=== PATIENT | female | born 2000 | race Caucasian/White ===

== ENCOUNTER 2019-01-09 04:34 | Emergency (ER) | payer BC ==
[2019-01-09] MEDS ORDERED: Sodium Chloride 0.9% 1000 ML 1,000 ML ONE (04:58)
[2019-01-09] MEDS ORDERED: Sodium Chloride 0.9% 1000 ML 1,000 ML IV STA (05:03)
[2019-01-09] MEDS ORDERED: Zofran 4 MG/2 ML VIAL IV ONE (05:03)
[2019-01-09] MEDS ORDERED: Hydromorphone 1 mg/ml Ampule IV ONE (05:03)
--- NOTE | 2019-01-09 05:03 | ERPHSYRPT ---
- History of Present Illness Time Seen by Provider: 01/09/19 04:55 Historian: patient, family Exam Limitations: no limitations Physician History: 18 y/o white female with h/o constipation presents with onset of sharp bilat lower abd pain that began at 1999 last pm. last normal bm was 3 days ago. pt has vomited a couple of times. no diarrhea, no vaginal or rectal bleeding. pt had a similar episode approx 2 months ago. pts lmp ended 3 weeks ago. Timing/Duration: constant, worse, other (last pm at 1999) Activities at Onset: none Quality: sharpness, stabbing Abdominal Pain Onset Location: RLQ, LLQ Pain Radiation: no radiation Severity of Pain-Max: moderate Severity of Pain-Current: moderate Modifying Factors: Improves With: vomiting Associated Symptoms: nausea, vomiting Previous symptoms: same symptoms as today Allergies/Adverse Reactions: No Known Drug Allergies Allergy (Verified 01/09/19 05:05) Home Medications: Sertraline HCl 50 mg [Zoloft 50 mg Tablet] 50 mg PO DAILY 01/09/19 [History] - Review of Systems Constitutional: No Symptoms Eyes: No Symptoms Ears, Nose, & Throat: No Symptoms Respiratory: No Symptoms Cardiac: No Symptoms Abdominal/Gastrointestinal: Abdominal Pain, Nausea, Vomiting, Constipation Genitourinary Symptoms: No Symptoms Musculoskeletal: No Symptoms Skin: No Symptoms Neurological: No Symptoms Psychological: No Symptoms Endocrine: No Symptoms Hematologic/Lymphatic: No Symptoms Immunological/Allergic: No Symptoms All Other Systems: Reviewed and Negative - Past Medical History Neurological History: No Pertinent History ENT History: No Pertinent History Cardiac History: No Pertinent History Respiratory History: No Pertinent History Endocrine Medical History: No Pertinent History Musculoskeletal History: No Pertinent History GI Medical History: No Pertinent History History: No Pertinent History Psycho-Social History: No Pertinent History Female Reproductive Disorders: No Pertinent History - Past Surgical History Neuro Surgical History: No Pertinent History Cardiac: No Pertinent History Respiratory: No Pertinent History Gastrointestinal: No Pertinent History Genitourinary: No Pertinent History Musculoskeletal: No Pertinent History Female Surgical History: No Pertinent History - Nursing Vital Signs Nursing Vital Signs: Initial Vital Signs Temperature 97.4 F 01/09/19 04:42 Pulse Rate 103 H 01/09/19 04:42 Respiratory Rate 18 01/09/19 04:42 Blood Pressure 134/77 01/09/19 04:42 O2 Sat by Pulse Oximetry 98 01/09/19 04:42 Pain Scale Pain Intensity 5 - Physical Exam General Appearance: mild distress, alert, anxiety Eye Exam: PERRL/EOMI, eyes nml inspection Ears, Nose, Throat Exam: normal ENT inspection, moist mucous membranes Neck Exam: normal inspection, non-tender, supple, full range of motion Respiratory Exam: normal breath sounds, lungs clear, airway intact, No chest tenderness, No respiratory distress Cardiovascular Exam: regular rate/rhythm, normal heart sounds, normal peripheral pulses Gastrointestinal/Abdomen Exam: soft, normal bowel sounds, No tenderness Pelvic Exam: not done Rectal Exam: not done Back Exam: normal inspection, normal range of motion, No CVA tenderness, No vertebral tenderness Extremity Exam: normal inspection, normal range of motion, pelvis stable Neurologic Exam: alert, oriented x 3, cooperative, 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 Skin Exam: normal color, warm, dry Lymphatic Exam: No adenopathy SpO2 Interpretation: normal O2 Delivery: Room Air - Course Nursing assessment & vital signs reviewed: Yes Ordered Tests: Active Orders 24 hr Category Date Time Status IV Insertion STAT Care 01/09/19 05:03 Active ABDOMEN AND PELVIS W/0 CONTRAS [CT] Stat Exams 01/09/19 05:04 Taken AMYLASE Stat Lab 01/09/19 04:50 Completed CBC W DIFF Stat Lab 01/09/19 04:50 Completed CMP Stat Lab 01/09/19 04:50 Completed CULTURE,URINE Stat Lab 01/09/19 04:50 Received HCG QUALITATIVE,SERUM Stat Lab 01/09/19 04:50 Completed LIPASE Stat Lab 01/09/19 04:50 Completed Lactic Acid Stat Lab 01/09/19 05:03 Completed UA W/RFX UR CULTURE Stat Lab 01/09/19 04:50 Completed Medication Summary Discontinued Medications Generic Name Dose Route Start Last Admin Trade Name Freq PRN Reason Stop Dose Admin Hydromorphone HCl 1 mg 01/09/19 05:03 01/09/19 05:11 Hydromorphone 1 Mg/Ml Ampule IV 01/09/19 05:04 1 mg STAT ONE Administration Hydromorphone HCl Confirm 01/09/19 05:10 Hydromorphone 1 Mg/Ml Ampule Administered 01/09/19 05:11 Dose 1 mg .ROUTE .STK-MED ONE Sodium Chloride Confirm 01/09/19 04:58 Sodium Chloride 0.9% 1000 Ml Administered 01/09/19 04:59 Dose 1,000 mls @ ud .ROUTE .STK-MED ONE Sodium Chloride 1,000 mls @ 999 mls/hr 01/09/19 05:03 01/09/19 05:09 Sodium Chloride 0.9% 1000 Ml IV 01/09/19 06:03 999 mls/hr .Q1H1M STA Administration Ondansetron HCl 4 mg 01/09/19 05:03 01/09/19 05:11 Zofran 4 Mg/2 Ml Vial IV 01/09/19 05:04 4 mg STAT ONE Administration Ondansetron HCl Confirm 01/09/19 05:10 Zofran 4 Mg/2 Ml Vial Administered 01/09/19 05:11 Dose 4 mg .ROUTE .STK-MED ONE Lab/Rad Data: Laboratory Result Diagrams 01/09/19 04:50 01/09/19 04:50 Laboratory Results 01/09/19 01/09/19 01/09/19 Range/Units 05:03 04:50 04:50 WBC (4.0-10.5) K/mm3 RBC (4.1-5.4) M/mm3 Hgb (12.0-16.0) gm/dl Hct (35-47) % MCV (78-100) fl MCH (26-32) pg MCHC (32-36) g/dl RDW (11.5-14.0) % Plt Count (150-450) K/mm3 MPV (6-9.5) fl Gran % (36.0-66.0) % Eos # (Auto) (0-0.5) Absolute Lymphs (auto) (1.0-4.6) Absolute Monos (auto) (0.0-1.3) Lymphocytes % (24.0-44.0) % Monocytes % (0.0-12.0) % Eosinophils % (0.00-5.0) % Basophils % (0.0-0.4) % Absolute Granulocytes (1.4-6.9) Basophils # (0-0.4) Sodium (137-145) mmol/L Potassium (3.5-5.1) mmol/L Chloride (98-107) mmol/L Carbon Dioxide (22-30) mmol/L Anion Gap (5-15) MEQ/L BUN (7-17) mg/dL Creatinine (0.52-1.04) mg/dL Estimated GFR ML/MIN Glucose (74-106) mg/dL Lactic Acid 1.1 (0.4-2.0) Calcium (8.4-10.2) mg/dL Total Bilirubin (0.2-1.3) mg/dL AST (14-36) U/L ALT (0-35) U/L Alkaline Phosphatase (38-126) U/L Serum Total Protein (6.3-8.2) g/dL Albumin (3.5-5.0) g/dL Amylase (30-110) U/L Lipase (23-300) U/L Serum , Qual NEGATIVE (Negative) Urine Color YELLOW (YELLOW) Urine Appearance SLIGHTLY CLOUDY (CLEAR) Urine pH 6.0 (5-6) Ur Specific [place] 1.019 (1.005-1.025) Urine Protein NEGATIVE (Negative) Urine Ketones TRACE (NEGATIVE) Urine Blood SMALL (0-5) Zachariah/ul Urine Nitrite POSITIVE (NEGATIVE) Urine Bilirubin NEGATIVE (NEGATIVE) Urine Urobilinogen NEGATIVE (0-1) mg/dL Ur Leukocyte Esterase NEGATIVE (NEGATIVE) Urine WBC (Auto) 6-10 (0-5) /HPF Urine RBC (Auto) NONE (0-2) /HPF U Epithel Cells (Auto) RARE (FEW) /HPF Urine Bacteria (Auto) NONE (NEGATIVE) /HPF Urine Mucus (Auto) SLIGHT (NEGATIVE) /HPF Urine Culture Reflexed YES (NO) Urine Glucose NEGATIVE (NEGATIVE) mg/dL 01/09/19 01/09/19 Range/Units 04:50 04:50 WBC 12.4 H (4.0-10.5) K/mm3 RBC 4.86 (4.1-5.4) M/mm3 Hgb 15.3 (12.0-16.0) gm/dl Hct 43.5 (35-47) % MCV 89.5 (78-100) fl MCH 31.5 (26-32) pg MCHC 35.2 (32-36) g/dl RDW 12.8 (11.5-14.0) % Plt Count 189 (150-450) K/mm3 MPV 10.6 H (6-9.5) fl Gran % 77.7 H (36.0-66.0) % Eos # (Auto) 0.12 (0-0.5) Absolute Lymphs (auto) 1.89 (1.0-4.6) Absolute Monos (auto) 0.75 (0.0-1.3) Lymphocytes % 15.2 L (24.0-44.0) % Monocytes % 6.0 (0.0-12.0) % Eosinophils % 1.0 (0.00-5.0) % Basophils % 0.1 (0.0-0.4) % Absolute Granulocytes 9.66 H (1.4-6.9) Basophils # 0.01 (0-0.4) Sodium 138 (137-145) mmol/L Potassium 3.7 (3.5-5.1) mmol/L Chloride 106 (98-107) mmol/L Carbon Dioxide 19 L (22-30) mmol/L Anion Gap 16.7 H (5-15) MEQ/L BUN 14 (7-17) mg/dL Creatinine 0.69 (0.52-1.04) mg/dL Estimated GFR > 60.0 ML/MIN Glucose 109 H (74-106) mg/dL Lactic Acid (0.4-2.0) Calcium 9.6 (8.4-10.2) mg/dL Total Bilirubin 0.80 (0.2-1.3) mg/dL AST 23 (14-36) U/L ALT 21 (0-35) U/L Alkaline Phosphatase 86 (38-126) U/L Serum Total Protein 7.9 (6.3-8.2) g/dL Albumin 4.4 (3.5-5.0) g/dL Amylase 85 (30-110) U/L Lipase 83 (23-300) U/L Serum , Qual (Negative) Urine Color (YELLOW) Urine Appearance (CLEAR) Urine pH (5-6) Ur Specific [place] (1.005-1.025) Urine Protein (Negative) Urine Ketones (NEGATIVE) Urine Blood (0-5) Zachariah/ul Urine Nitrite (NEGATIVE) Urine Bilirubin (NEGATIVE) Urine Urobilinogen (0-1) mg/dL Ur Leukocyte Esterase (NEGATIVE) Urine WBC (Auto) (0-5) /HPF Urine RBC (Auto) (0-2) /HPF U Epithel Cells (Auto) (FEW) /HPF Urine Bacteria (Auto) (NEGATIVE) /HPF Urine Mucus (Auto) (NEGATIVE) /HPF Urine Culture Reflexed (NO) Urine Glucose (NEGATIVE) mg/dL - Progress Progress Note: 01/09/19 06:47 ct abd/pelvis-no acute process. Counseled pt/family regarding: lab results, diagnosis, need for follow-up, rad results - Departure Departure Disposition: Home Clinical Impression: Constipation, UTI (urinary tract infection), Abdominal pain Condition: Stable Critical Care Time: No Referrals: DANYELLE AGUIRRE NP [Primary Care Provider] - Additional Instructions: drink plenty of fluids. follow up with primary doctor for further management Prescriptions: Ondansetron ODT 4 MG [Zofran Odt 4 mg] 4 mg PO Q6H PRN PRN #10 tab.rapdis PRN Reason: Vomiting Cephalexin Mh 500 mg [Keflex 500 mg] 500 mg PO TID #21 capsule
[2019-01-09] MEDS ORDERED: Hydromorphone 1 mg/ml Ampule ONE (05:10)
[2019-01-09] MEDS ORDERED: Zofran 4 MG/2 ML VIAL ONE (05:10)
[2019-01-09 05:16] LABS: BASOPHIL % 0.1 % (0.0-0.4); Basophil (Absolute #) 0.01 (0-0.4); Eosinophil (Absolute #) 0.12 (0-0.5); Granulocyte Absolute (ANC) 9.66 (1.4-6.9); Granulocytes % 77.7 % (36.0-66.0); Hematocrit 43.5 % (35-47); Hemoglobin 15.3 gm/dl (12.0-16.0); Lymphocyte (Absolute #) 1.89 (1.0-4.6); Lymphocytes % 15.2 % (24.0-44.0); Mean Cell Volume 89.5 fl (78-100); Mean Corpuscular Hemoglobin 31.5 pg (26-32); Mean Corpuscular Hgb Concent. 35.2 g/dl (32-36); Mean Platelet Volume 10.6 fl (6-9.5); Monocyte (Absolute #) 0.75 (0.0-1.3); Platelet Count 189 K/mm3 (150-450); Red Blood Count 4.86 M/mm3 (4.1-5.4); Red Cell Distribution Width 12.8 % (11.5-14.0); White Blood Count 12.4 K/mm3 (4.0-10.5)
[2019-01-09 05:31] LABS: ALBUMIN 4.4 g/dL (3.5-5.0); ALKALINE PHOSPHATASE 86 U/L (38-126); AMYLASE 85 U/L (30-110); ANION GAP 16.7 MEQ/L (5-15); BLOOD UREA NITROGEN 14 mg/dL (7-17); CHLORIDE 106 mmol/L (98-107); Calcium 9.6 mg/dL (8.4-10.2); Carbon Dioxide 19 mmol/L (22-30); Creatinine 1 0.69 mg/dL (0.52-1.04); Glucose 109 mg/dL (74-106); Potassium 3.7 mmol/L (3.5-5.1); SGOT/AST 23 U/L (14-36); SGPT/ALT 21 U/L (0-35); SODIUM 138 mmol/L (137-145); Total Protein 7.9 g/dL (6.3-8.2)
[2019-01-09 05:33] LABS: Appearance SLIGHTLY CLOUDY (CLEAR); Bilirubin NEGATIVE (NEGATIVE); Blood SMALL Ery/ul (0-5); Epithelial Cells RARE /HPF (FEW); Glucose NEGATIVE (NEGATIVE); Ketones TRACE (NEGATIVE); Leukocyte Esterase NEGATIVE (NEGATIVE); Mucus SLIGHT /HPF (NEGATIVE); Nitrite POSITIVE (NEGATIVE); Protein,Urine Dip NEGATIVE (Negative); Specific Gravity 1.019 (1.005-1.025); Urobilinogen NEGATIVE mg/dL (0-1)
[2019-01-09] MEDS ORDERED: Pepcid 20 MG PO ONE (06:54)
[2019-01-09] MEDS ORDERED: KEFLEX 500 MG PO ONE (06:54)
[2019-01-09] MEDS ORDERED: KEFLEX 500 MG ONE (06:57)
[2019-01-09] MEDS ORDERED: Pepcid 20 MG ONE (06:57)
[2019-01-09 07:12] VITALS: BP 119/54; PULSE 81; O2SAT 98
--- NOTE | 2019-01-09 08:52 | XRAY ---
Indication: Abdomen pain. Emesis. Multiple contiguous axial images obtained through the abdomen and pelvis without contrast as ordered. Comparison: None. Lung bases are clear. Heart is not enlarged. Noncontrasted stomach and bowel loops appear nonobstructed. Normal appendix. No free fluid/air. Spleen is enlarged measuring 12.8 cm in greatest axial dimension. Remaining liver, gallbladder, pancreas, spleen, adrenal glands, kidneys, ureters, bladder, uterus, and aorta appear unremarkable for noncontrast exam. Osseous structures intact. No ventral or inguinal hernias. Impression: 1. Splenomegaly. 2. Remaining CT abdomen/pelvis without contrast exam is negative. Comment: Preliminary interpretation was made by [facility]. No critical discrepancy. CTDI 17.10
== END 2019-01-09 07:22 | disposition home or self-care (01) ==
LOC: ED 04:34
DX: K59.00 Constipation, unspecified (principal); N39.0 Urinary tract infection, site not specified; R10.31 Right lower quadrant pain; R10.32 Left lower quadrant pain; R11.2 Nausea with vomiting, unspecified; Z79.899 Other long term (current) drug therapy
CPT/HCPCS: 36000; 36415; 74176; 80053; 81001; 81025; 82150; 83605; 83690; 85025; 87077; 87086; 87186; 96360; 96374; 96375; 99284; J1170; J2405; A9270-GY

== ENCOUNTER 2019-03-21 03:44 | Emergency (ER) | payer BC ==
[2019-03-21] MEDS ORDERED: Compazine 10 MG/2 ML IV ONE (04:12)
[2019-03-21] MEDS ORDERED: Sodium Chloride 0.9% 1000 ML 1,000 ML IV STA (04:12)
--- NOTE | 2019-03-21 04:16 | ERPHSYRPT ---
- History of Present Illness Time Seen by Provider: 03/21/19 04:14 Historian: patient Exam Limitations: no limitations Patient Subjective Stated Complaint: pt states she began having lower abd cramping at approx 1999 and has been vomiting since. states she has waves of nausea and vomits after every time she drinks. Triage Nursing Assessment: pt alert and oriented, answers questions approp. pt ambulatory with steady gait noted. respirations nonlabored with lungs cta. abd soft and nontender with hypo bowel sounds. Physician History: pt states she began having lower abdominal cramping at approximately 2000 and has been vomiting since. states she has waves of nausea and vomits after every time she drinks. Timing/Duration: today Quality: cramping Abdominal Pain Onset Location: periumbilical Pain Radiation: no radiation Severity of Pain-Max: moderate Severity of Pain-Current: mild Modifying Factors: Improves With: nothing Associated Symptoms: vomiting Previous symptoms: no prior history Allergies/Adverse Reactions: No Known Drug Allergies Allergy (Verified 01/09/19 05:05) Home Medications: Sertraline HCl 50 mg [Zoloft 50 mg Tablet] 50 mg PO DAILY 01/09/19 [History] Hx Tetanus, Diphtheria Vaccination/Date Given: Yes Hx Influenza Vaccination/Date Given: No Hx Pneumococcal Vaccination/Date Given: No Immunizations Up to Date: Yes - Review of Systems Constitutional: No Fever, No Chills Eyes: No Symptoms Ears, Nose, & Throat: No Symptoms Respiratory: No Cough, No Dyspnea Cardiac: No Chest Pain, No Edema, No Syncope Abdominal/Gastrointestinal: Abdominal Pain, Vomiting, No Nausea, No Diarrhea Genitourinary Symptoms: No Dysuria Musculoskeletal: No Back Pain, No Neck Pain Skin: No Rash Neurological: No Dizziness, No Focal Weakness, No Sensory Changes Psychological: No Symptoms Endocrine: No Symptoms All Other Systems: Reviewed and Negative - Past Medical History Neurological History: No Pertinent History ENT History: No Pertinent History Cardiac History: No Pertinent History Respiratory History: No Pertinent History Endocrine Medical History: No Pertinent History Musculoskeletal History: No Pertinent History GI Medical History: No Pertinent History History: No Pertinent History Psycho-Social History: No Pertinent History Female Reproductive Disorders: No Pertinent History Other Medical History: hx of constipation and abd pain - Past Surgical History Past Surgical History: No Neuro Surgical History: No Pertinent History Cardiac: No Pertinent History Respiratory: No Pertinent History Gastrointestinal: No Pertinent History Genitourinary: No Pertinent History Musculoskeletal: No Pertinent History Female Surgical History: No Pertinent History Other Surgical History: wisdom teeth - Social History Smoking Status: Current every day smoker How long have you smoked: 1.5yr Exposure to second hand smoke: Yes Drug Use: marijuana Patient Lives Alone: No - Female History Hx Last Menstrual Period: current Hx Now: No - Nursing Vital Signs Nursing Vital Signs: Initial Vital Signs Temperature 97.6 F 03/21/19 03:48 Pulse Rate 63 03/21/19 03:48 Respiratory Rate 18 03/21/19 03:48 Blood Pressure 134/69 03/21/19 03:48 O2 Sat by Pulse Oximetry 100 03/21/19 03:48 Pain Scale Pain Intensity 4 - Physical Exam General Appearance: no apparent distress, alert Eye Exam: PERRL/EOMI, eyes nml inspection Ears, Nose, Throat Exam: normal ENT inspection, pharynx normal, moist mucous membranes Neck Exam: normal inspection, non-tender, supple, full range of motion Respiratory Exam: normal breath sounds, lungs clear, No respiratory distress Cardiovascular Exam: regular rate/rhythm, normal heart sounds Gastrointestinal/Abdomen Exam: soft, No tenderness, No mass Back Exam: normal inspection, normal range of motion, No CVA tenderness, No vertebral tenderness Extremity Exam: normal inspection, normal range of motion, pelvis stable Neurologic Exam: alert, oriented x 3, cooperative, normal mood/affect, nml cerebellar function, sensation nml, No motor deficits Skin Exam: normal color, warm, dry SpO2: 100 - Course Nursing assessment & vital signs reviewed: Yes Ordered Tests: Active Orders 24 hr Category Date Time Status AMYLASE Stat Lab 03/21/19 04:25 Completed CBC W DIFF Stat Lab 03/21/19 04:25 Completed CMP Stat Lab 03/21/19 04:25 Completed HCG QUALITATIVE,SERUM Stat Lab 03/21/19 04:25 Completed Lactic Acid Stat Lab 03/21/19 04:12 Completed UA W/RFX UR CULTURE Stat Lab 03/21/19 04:12 Uncollected Medication Summary Discontinued Medications Generic Name Dose Route Start Last Admin Trade Name Freq PRN Reason Stop Dose Admin Sodium Chloride 1,000 mls @ 999 mls/hr 03/21/19 04:12 03/21/19 05:39 Sodium Chloride 0.9% 1000 Ml IV 03/21/19 05:12 Infused .Q1H1M STA Infusion Sodium Chloride Confirm 03/21/19 04:21 Sodium Chloride 0.9% 1000 Ml Administered 03/21/19 04:22 Dose 1,000 mls @ ud .ROUTE .STK-MED ONE Prochlorperazine Edisylate 10 mg 03/21/19 04:12 03/21/19 04:28 Compazine 10 Mg/2 Ml IV 03/21/19 04:13 10 mg STAT ONE Administration Prochlorperazine Edisylate Confirm 03/21/19 04:21 Compazine 10 Mg/2 Ml Administered 03/21/19 04:22 Dose 10 mg .ROUTE .STIdeabove-MED ONE Lab/Rad Data: Laboratory Result Diagrams 03/21/19 04:25 03/21/19 04:25 Laboratory Results 03/21/19 03/21/19 03/21/19 Range/Units 04:53 04:25 04:25 WBC (4.0-10.5) K/mm3 RBC (4.1-5.4) M/mm3 Hgb (12.0-16.0) gm/dl Hct (35-47) % MCV (78-100) fl MCH (26-32) pg MCHC (32-36) g/dl RDW (11.5-14.0) % Plt Count (150-450) K/mm3 MPV (6-9.5) fl Gran % (36.0-66.0) % Eos # (Auto) (0-0.5) Absolute Lymphs (auto) (1.0-4.6) Absolute Monos (auto) (0.0-1.3) Lymphocytes % (24.0-44.0) % Monocytes % (0.0-12.0) % Eosinophils % (0.00-5.0) % Basophils % (0.0-0.4) % Absolute Granulocytes (1.4-6.9) Basophils # (0-0.4) Sodium 142 (137-145) mmol/L Potassium 3.5 (3.5-5.1) mmol/L Chloride 107 (98-107) mmol/L Carbon Dioxide 22 (22-30) mmol/L Anion Gap 16.6 H (5-15) MEQ/L BUN 13 (7-17) mg/dL Creatinine 0.66 (0.52-1.04) mg/dL Estimated GFR > 60.0 ML/MIN Glucose 130 H (74-106) mg/dL Hemoglobin A1c 4.76 (4.5-6.0) % Lactic Acid (0.4-2.0) Calcium 10.1 (8.4-10.2) mg/dL Total Bilirubin 0.60 (0.2-1.3) mg/dL AST 23 (14-36) U/L ALT 17 (0-35) U/L Alkaline Phosphatase 79 (38-126) U/L Serum Total Protein 8.7 H (6.3-8.2) g/dL Albumin 5.0 (3.5-5.0) g/dL Amylase 89 (30-110) U/L Serum , Qual NEGATIVE (Negative) 03/21/19 03/21/19 Range/Units 04:25 04:12 WBC 11.3 H (4.0-10.5) K/mm3 RBC 4.89 (4.1-5.4) M/mm3 Hgb 15.1 (12.0-16.0) gm/dl Hct 44.7 (35-47) % MCV 91.4 (78-100) fl MCH 30.9 (26-32) pg MCHC 33.8 (32-36) g/dl RDW 13.2 (11.5-14.0) % Plt Count 189 (150-450) K/mm3 MPV 10.1 H (6-9.5) fl Gran % 83.6 H (36.0-66.0) % Eos # (Auto) 0.02 (0-0.5) Absolute Lymphs (auto) 1.30 (1.0-4.6) Absolute Monos (auto) 0.53 (0.0-1.3) Lymphocytes % 11.5 L (24.0-44.0) % Monocytes % 4.7 (0.0-12.0) % Eosinophils % 0.2 (0.00-5.0) % Basophils % 0.0 (0.0-0.4) % Absolute Granulocytes 9.43 H (1.4-6.9) Basophils # 0 (0-0.4) Sodium (137-145) mmol/L Potassium (3.5-5.1) mmol/L Chloride (98-107) mmol/L Carbon Dioxide (22-30) mmol/L Anion Gap (5-15) MEQ/L BUN (7-17) mg/dL Creatinine (0.52-1.04) mg/dL Estimated GFR ML/MIN Glucose (74-106) mg/dL Hemoglobin A1c (4.5-6.0) % Lactic Acid 1.4 (0.4-2.0) Calcium (8.4-10.2) mg/dL Total Bilirubin (0.2-1.3) mg/dL AST (14-36) U/L ALT (0-35) U/L Alkaline Phosphatase (38-126) U/L Serum Total Protein (6.3-8.2) g/dL Albumin (3.5-5.0) g/dL Amylase (30-110) U/L Serum , Qual (Negative) unable to provide urine sample for UA - Progress Progress: improved Counseled pt/family regarding: drug and/or alcohol abuse, lab results, diagnosis , need for follow-up, smoking cessation - Departure Departure Disposition: Home Clinical Impression: Abdominal pain Qualifiers: Abdominal location: periumbilical Qualified Code(s): R10.33 - Periumbilical pain UTI (urinary tract infection) Qualifiers: Urinary tract infection type: site unspecified Hematuria presence: without hematuria Qualified Code(s): N39.0 - Urinary tract infection, site not specified Condition: Stable Critical Care Time: No Referrals: DANYELLE AGUIRRE NP [Primary Care Provider] - Instructions: Acute Abdomen (Belly Pain), Adult (DC) Additional Instructions: ABDOMINAL PAIN 1. There are several different causes for abdominal pain, some of which may not be able to be identified on initial examination. 2. The important thing to remember is that bodily functions can change in a short period of time. If you notice any of the following symptoms, return to the emergency department or consult your doctor immediately: A. Worsening pain or no improvement in the next 12 hours. B. Increasing, severe abdominal pain C. Blood in stool D. Black stools E. Persistent vomiting F. Fever or chills or other symptoms Discharge/Care Plan ADRIANA SHIELDS was seen on 03/21/19 in the Emergency Room. The patient was counseled regarding Diagnosis,Lab results, Imaging studies, need for follow up and when to return to the Emergency Room. Prescriptions given: Discharge Note I have spoken with the patient and/or caregivers. I have explained the patient' s condition, diagnosis and treatment plan based on the information available to me at this time. I have answered the patient's and/or caregiver's questions and addressed any concerns. The patient and/or caregivers have as good understanding of the patient's diagnosis, condition and treatment plan as can be expected at this point. The vital signs have been stable. The patient's condition is stable and appropriate for discharge from the emergency department. The patient will pursue further outpatient evaluation with the primary care physician or other designated or consulting physician as outlined in the discharge instructions. The patient and/or caregivers are agreeable to this plan of care and follow-up instructions have been explained in detail. The patient and/or caregivers have received these instruction. The patient/and or caregivers are aware that any significant change in condition or worsening of symptoms should prompt an immediate return to this or the closest emergency department or call 911. Prescriptions: Smz/Tmp Ds Tablet [Bactrim Ds Tablet] 1 udtab PO BID #20 tablet
[2019-03-21] MEDS ORDERED: Sodium Chloride 0.9% 1000 ML 1,000 ML ONE (04:21)
[2019-03-21] MEDS ORDERED: Compazine 10 MG/2 ML ONE (04:21)
[2019-03-21 04:26] LABS: Basophil (Absolute #) 0 (0-0.4); Eosinophil % 0.2 % (0.00-5.0); Eosinophil (Absolute #) 0.02 (0-0.5); Granulocyte Absolute (ANC) 9.43 (1.4-6.9); Granulocytes % 83.6 % (36.0-66.0); Hematocrit 44.7 % (35-47); Hemoglobin 15.1 gm/dl (12.0-16.0); Lymphocytes % 11.5 % (24.0-44.0); Mean Cell Volume 91.4 fl (78-100); Mean Corpuscular Hemoglobin 30.9 pg (26-32); Mean Corpuscular Hgb Concent. 33.8 g/dl (32-36); Mean Platelet Volume 10.1 fl (6-9.5); Monocyte (Absolute #) 0.53 (0.0-1.3); Monocytes % 4.7 % (0.0-12.0); Platelet Count 189 K/mm3 (150-450); Red Blood Count 4.89 M/mm3 (4.1-5.4); Red Cell Distribution Width 13.2 % (11.5-14.0); White Blood Count 11.3 K/mm3 (4.0-10.5)
[2019-03-21 04:35] LABS: ALKALINE PHOSPHATASE 79 U/L (38-126); AMYLASE 89 U/L (30-110); ANION GAP 16.6 MEQ/L (5-15); BLOOD UREA NITROGEN 13 mg/dL (7-17); CHLORIDE 107 mmol/L (98-107); Calcium 10.1 mg/dL (8.4-10.2); Carbon Dioxide 22 mmol/L (22-30); Creatinine 1 0.66 mg/dL (0.52-1.04); Glucose 130 mg/dL (74-106); Potassium 3.5 mmol/L (3.5-5.1); SGOT/AST 23 U/L (14-36); SGPT/ALT 17 U/L (0-35); SODIUM 142 mmol/L (137-145); Total Protein 8.7 g/dL (6.3-8.2)
[2019-03-21 05:49] VITALS: O2SAT 100
[2019-03-21 06:04] VITALS: BP 116/54; PULSE 67
== END 2019-03-21 06:01 | disposition home or self-care (01) ==
LOC: ED 03:44
DX: R10.33 Periumbilical pain (principal); N39.0 Urinary tract infection, site not specified
CPT/HCPCS: 36415; 80053; 81025; 82150; 83036; 83605; 85025; 96360; 96374; 99284

== ENCOUNTER 2019-06-05 22:15 | Emergency (ER) | payer BC ==
--- NOTE | 2019-06-05 22:35 | ERPHSYRPT ---
- History of Present Illness Time Seen by Provider: 06/05/19 22:30 Historian: patient Exam Limitations: no limitations Physician History: 18 y/o white female presents with first diarrhea, then vomiting thenrecurrent abd pain. pts sx began this afternoon. pt has been evaluated for abd pain 3 times in last 4 months through this ED. each time dx has been uti. normal ct scan abd/pelvis 01/22. pt has h/o chronic constipation. Timing/Duration: today Activities at Onset: none Quality: cramping Abdominal Pain Onset Location: generalized abdomen Pain Radiation: no radiation Severity of Pain-Max: mild Severity of Pain-Current: mild Modifying Factors: Improves With: vomiting Associated Symptoms: diarrhea, nausea, vomiting, No chest pain, No diaphoresis, No fever/chills, No shortness of breath Previous symptoms: same symptoms as today Allergies/Adverse Reactions: No Known Drug Allergies Allergy (Verified 01/09/19 05:05) Hx Tetanus, Diphtheria Vaccination/Date Given: Yes Hx Influenza Vaccination/Date Given: No Hx Pneumococcal Vaccination/Date Given: No - Review of Systems Constitutional: No Symptoms Eyes: No Symptoms Ears, Nose, & Throat: No Symptoms Respiratory: No Symptoms Cardiac: No Symptoms Abdominal/Gastrointestinal: Abdominal Pain, Nausea, Vomiting, Diarrhea, Appetite Changes Genitourinary Symptoms: No Symptoms Musculoskeletal: No Symptoms Skin: No Symptoms Neurological: No Symptoms Psychological: No Symptoms Endocrine: No Symptoms - Past Medical History Neurological History: No Pertinent History ENT History: No Pertinent History Cardiac History: No Pertinent History Respiratory History: No Pertinent History Endocrine Medical History: No Pertinent History Musculoskeletal History: No Pertinent History GI Medical History: No Pertinent History History: No Pertinent History Psycho-Social History: No Pertinent History Female Reproductive Disorders: No Pertinent History Other Medical History: hx of constipation and abd pain - Past Surgical History Past Surgical History: No Neuro Surgical History: No Pertinent History Cardiac: No Pertinent History Respiratory: No Pertinent History Gastrointestinal: No Pertinent History Genitourinary: No Pertinent History Musculoskeletal: No Pertinent History Female Surgical History: No Pertinent History Other Surgical History: wisdom teeth - Social History Smoking Status: Current every day smoker How long have you smoked: 1.5yr Exposure to second hand smoke: Yes Drug Use: marijuana Patient Lives Alone: No - Nursing Vital Signs Nursing Vital Signs: Initial Vital Signs Temperature 97.5 F 06/05/19 22:31 Pulse Rate 67 06/05/19 22:31 Respiratory Rate 17 06/05/19 22:31 Blood Pressure 132/74 06/05/19 22:31 O2 Sat by Pulse Oximetry 99 06/05/19 22:31 Pain Scale Pain Intensity 0 - Physical Exam General Appearance: mild distress, alert, anxiety Eye Exam: PERRL/EOMI, eyes nml inspection Ears, Nose, Throat Exam: normal ENT inspection, moist mucous membranes Neck Exam: normal inspection, non-tender, supple, full range of motion Respiratory Exam: normal breath sounds, lungs clear, No chest tenderness, No respiratory distress Cardiovascular Exam: regular rate/rhythm, normal heart sounds, normal peripheral pulses Gastrointestinal/Abdomen Exam: soft, normal bowel sounds, tenderness (mild diffuse), No guarding, No rebound Pelvic Exam: not done Rectal Exam: not done Back Exam: normal inspection, normal range of motion, No CVA tenderness, No vertebral tenderness Extremity Exam: normal inspection, normal range of motion, pelvis stable Neurologic Exam: alert, oriented x 3, cooperative, suction plate roller hand II-XII nml as tested, nml cerebellar function, nml station & gait Skin Exam: normal color, warm, dry Lymphatic Exam: No adenopathy SpO2 Interpretation: normal SpO2: 99 O2 Delivery: Room Air Ordered Tests: Active Orders 24 hr Category Date Time Status IV Insertion STAT Care 06/05/19 22:52 Active AMYLASE Stat Lab 06/05/19 22:57 Completed CBC W DIFF Stat Lab 06/05/19 22:57 Completed CMP Stat Lab 06/05/19 22:57 Completed CULTURE,URINE Stat Lab 06/06/19 00:46 Received HCG,QUALITATIVE URINE Stat Lab 06/06/19 00:46 Completed LIPASE Stat Lab 06/05/19 22:57 Completed Lactic Acid Stat Lab 06/05/19 23:00 Completed Beadle Screen Stat Lab 06/05/19 22:57 Completed UA W/RFX UR CULTURE Stat Lab 06/06/19 00:46 Completed Medication Summary Generic Name Dose Route Start Last Admin Trade Name Freq PRN Reason Stop Dose Admin Sodium Chloride 1,000 mls @ 999 mls/hr 06/06/19 00:37 06/06/19 00:39 Sodium Chloride 0.9% 1000 Ml IV 06/06/19 01:37 999 mls/hr .Q1H1M STA Administration Sodium Chloride 500 mls @ 500 mls/hr 06/06/19 01:21 Sodium Chloride 0.9% 500 Ml IV 06/06/19 02:20 .Q1H ONE Discontinued Medications Generic Name Dose Route Start Last Admin Trade Name Juvenal PRN Reason Stop Dose Admin Sodium Chloride 1,000 mls @ 999 mls/hr 06/05/19 22:52 06/05/19 23:01 Sodium Chloride 0.9% 1000 Ml IV 06/05/19 23:52 999 mls/hr .Q1H1M STA Administration Sodium Chloride Confirm 06/05/19 23:00 Sodium Chloride 0.9% 1000 Ml Administered 06/05/19 23:01 Dose 1,000 mls @ ud .ROUTE .STK-MED ONE Sodium Chloride Confirm 06/06/19 00:38 Sodium Chloride 0.9% 1000 Ml Administered 06/06/19 00:39 Dose 1,000 mls @ ud .ROUTE .STK-MED ONE Ondansetron HCl 4 mg 06/05/19 22:52 06/05/19 23:01 Zofran 4 Mg/2 Ml Vial IV 06/05/19 22:53 4 mg STAT ONE Administration Ondansetron HCl Confirm 06/05/19 23:00 Zofran 4 Mg/2 Ml Vial Administered 06/05/19 23:01 Dose 4 mg .ROUTE .STK-MED ONE Lab/Rad Data: Laboratory Result Diagrams 06/05/19 22:57 06/05/19 22:57 Laboratory Results 06/06/19 06/06/19 06/05/19 Range/Units 00:46 00:46 23:04 WBC (4.0-10.5) K/mm3 RBC (4.1-5.4) M/mm3 Hgb (12.0-16.0) gm/dl Hct (35-47) % MCV (78-100) fl MCH (26-32) pg MCHC (32-36) g/dl RDW (11.5-14.0) % Plt Count (150-450) K/mm3 MPV (6-9.5) fl Gran % (36.0-66.0) % Eos # (Auto) (0-0.5) Absolute Lymphs (auto) (1.0-4.6) Absolute Monos (auto) (0.0-1.3) Lymphocytes % (24.0-44.0) % Monocytes % (0.0-12.0) % Eosinophils % (0.00-5.0) % Basophils % (0.0-0.4) % Absolute Granulocytes (1.4-6.9) Basophils # (0-0.4) Sodium (137-145) mmol/L Potassium (3.5-5.1) mmol/L Chloride (98-107) mmol/L Carbon Dioxide (22-30) mmol/L Anion Gap (5-15) MEQ/L BUN (7-17) mg/dL Creatinine (0.52-1.04) mg/dL Estimated GFR ML/MIN Glucose (74-106) mg/dL Lactic Acid (0.4-2.0) Calcium (8.4-10.2) mg/dL Total Bilirubin (0.2-1.3) mg/dL AST (14-36) U/L ALT (0-35) U/L Alkaline Phosphatase (38-126) U/L Serum Total Protein (6.3-8.2) g/dL Albumin (3.5-5.0) g/dL Amylase (30-110) U/L Lipase (23-300) U/L Urine Color YELLOW (YELLOW) Urine Appearance CLOUDY (CLEAR) Urine pH 7.0 (5-6) Ur Specific [place] 1.024 (1.005-1.025) Urine Protein NEGATIVE (Negative) Urine Ketones MODERATE (NEGATIVE) Urine Blood LARGE (0-5) Zachariah/ul Urine Nitrite NEGATIVE (NEGATIVE) Urine Bilirubin NEGATIVE (NEGATIVE) Urine Urobilinogen NEGATIVE (0-1) mg/dL Ur Leukocyte Esterase NEGATIVE (NEGATIVE) Urine WBC (Auto) 3-5 (0-5) /HPF Urine RBC (Auto) 3-5 (0-2) /HPF U Epithel Cells (Auto) RARE (FEW) /HPF Urine Bacteria (Auto) MODERATE (NEGATIVE) /HPF Amorphous Crystals MODERATE (NEGATIVE) /HPF Urine Mucus (Auto) SLIGHT (NEGATIVE) /HPF Urine Yeast (Budding) Few (NEGATIVE) /HPF Urine Culture Reflexed YES (NO) Urine Glucose NEGATIVE (NEGATIVE) mg/dL Urine HCG, Qual NEGATIVE (Negative) Monoscreen (Negative) Influenza Type A Ag NEGATIVE (NEGATIVE) Influenza Type B Ag NEGATIVE (NEGATIVE) RSV (PCR) NEGATIVE (Negative) 06/05/19 06/05/19 06/05/19 Range/Units 23:00 22:57 22:57 WBC (4.0-10.5) K/mm3 RBC (4.1-5.4) M/mm3 Hgb (12.0-16.0) gm/dl Hct (35-47) % MCV (78-100) fl MCH (26-32) pg MCHC (32-36) g/dl RDW (11.5-14.0) % Plt Count (150-450) K/mm3 MPV (6-9.5) fl Gran % (36.0-66.0) % Eos # (Auto) (0-0.5) Absolute Lymphs (auto) (1.0-4.6) Absolute Monos (auto) (0.0-1.3) Lymphocytes % (24.0-44.0) % Monocytes % (0.0-12.0) % Eosinophils % (0.00-5.0) % Basophils % (0.0-0.4) % Absolute Granulocytes (1.4-6.9) Basophils # (0-0.4) Sodium 141 (137-145) mmol/L Potassium 3.7 (3.5-5.1) mmol/L Chloride 109 H (98-107) mmol/L Carbon Dioxide 21 L (22-30) mmol/L Anion Gap 14.5 (5-15) MEQ/L BUN 13 (7-17) mg/dL Creatinine 0.55 (0.52-1.04) mg/dL Estimated GFR > 60.0 ML/MIN Glucose 133 H (74-106) mg/dL Lactic Acid 1.5 (0.4-2.0) Calcium 9.9 (8.4-10.2) mg/dL Total Bilirubin 0.70 (0.2-1.3) mg/dL AST 30 (14-36) U/L ALT 27 (0-35) U/L Alkaline Phosphatase 74 (38-126) U/L Serum Total Protein 8.1 (6.3-8.2) g/dL Albumin 4.5 (3.5-5.0) g/dL Amylase 95 (30-110) U/L Lipase 111 (23-300) U/L Urine Color (YELLOW) Urine Appearance (CLEAR) Urine pH (5-6) Ur Specific [place] (1.005-1.025) Urine Protein (Negative) Urine Ketones (NEGATIVE) Urine Blood (0-5) Zachariah/ul Urine Nitrite (NEGATIVE) Urine Bilirubin (NEGATIVE) Urine Urobilinogen (0-1) mg/dL Ur Leukocyte Esterase (NEGATIVE) Urine WBC (Auto) (0-5) /HPF Urine RBC (Auto) (0-2) /HPF U Epithel Cells (Auto) (FEW) /HPF Urine Bacteria (Auto) (NEGATIVE) /HPF Amorphous Crystals (NEGATIVE) /HPF Urine Mucus (Auto) (NEGATIVE) /HPF Urine Yeast (Budding) (NEGATIVE) /HPF Urine Culture Reflexed (NO) Urine Glucose (NEGATIVE) mg/dL Urine HCG, Qual (Negative) Monoscreen NEGATIVE (Negative) Influenza Type A Ag (NEGATIVE) Influenza Type B Ag (NEGATIVE) RSV (PCR) (Negative) 06/05/19 Range/Units 22:57 WBC 10.0 (4.0-10.5) K/mm3 RBC 4.47 (4.1-5.4) M/mm3 Hgb 13.8 (12.0-16.0) gm/dl Hct 40.4 (35-47) % MCV 90.4 (78-100) fl MCH 30.9 (26-32) pg MCHC 34.2 (32-36) g/dl RDW 13.0 (11.5-14.0) % Plt Count 179 (150-450) K/mm3 MPV 10.0 H (6-9.5) fl Gran % 84.0 H (36.0-66.0) % Eos # (Auto) 0.02 (0-0.5) Absolute Lymphs (auto) 1.08 (1.0-4.6) Absolute Monos (auto) 0.49 (0.0-1.3) Lymphocytes % 10.8 L (24.0-44.0) % Monocytes % 4.9 (0.0-12.0) % Eosinophils % 0.2 (0.00-5.0) % Basophils % 0.1 (0.0-0.4) % Absolute Granulocytes 8.41 H (1.4-6.9) Basophils # 0.01 (0-0.4) Sodium (137-145) mmol/L Potassium (3.5-5.1) mmol/L Chloride (98-107) mmol/L Carbon Dioxide (22-30) mmol/L Anion Gap (5-15) MEQ/L BUN (7-17) mg/dL Creatinine (0.52-1.04) mg/dL Estimated GFR ML/MIN Glucose (74-106) mg/dL Lactic Acid (0.4-2.0) Calcium (8.4-10.2) mg/dL Total Bilirubin (0.2-1.3) mg/dL AST (14-36) U/L ALT (0-35) U/L Alkaline Phosphatase (38-126) U/L Serum Total Protein (6.3-8.2) g/dL Albumin (3.5-5.0) g/dL Amylase (30-110) U/L Lipase (23-300) U/L Urine Color (YELLOW) Urine Appearance (CLEAR) Urine pH (5-6) Ur Specific [place] (1.005-1.025) Urine Protein (Negative) Urine Ketones (NEGATIVE) Urine Blood (0-5) Zachariah/ul Urine Nitrite (NEGATIVE) Urine Bilirubin (NEGATIVE) Urine Urobilinogen (0-1) mg/dL Ur Leukocyte Esterase (NEGATIVE) Urine WBC (Auto) (0-5) /HPF Urine RBC (Auto) (0-2) /HPF U Epithel Cells (Auto) (FEW) /HPF Urine Bacteria (Auto) (NEGATIVE) /HPF Amorphous Crystals (NEGATIVE) /HPF Urine Mucus (Auto) (NEGATIVE) /HPF Urine Yeast (Budding) (NEGATIVE) /HPF Urine Culture Reflexed (NO) Urine Glucose (NEGATIVE) mg/dL Urine HCG, Qual (Negative) Monoscreen (Negative) Influenza Type A Ag (NEGATIVE) Influenza Type B Ag (NEGATIVE) RSV (PCR) (Negative) - Progress Progress: improved Progress Note: 06/06/19 01:32 pt states she has no abd pain and feels much better. she is hungry and thirsty Counseled pt/family regarding: lab results, diagnosis, need for follow-up - Departure Departure Disposition: Home Clinical Impression: Vomiting and diarrhea, Dehydration Condition: Stable Critical Care Time: No Referrals: DANYELLE AGUIRRE [employer]ER[employer]KER DEMONSTRATOR [Primary Care Provider] - Additional Instructions: drink plenty of fluids. follow up with primary doctor for persistent symptoms Prescriptions: Ondansetron ODT 4 MG [Zofran Odt 4 mg] 4 mg PO Q6H PRN PRN #10 tab.rapdis PRN Reason: Vomiting
[2019-06-05] MEDS ORDERED: Zofran 4 MG/2 ML VIAL IV ONE (22:52)
[2019-06-05] MEDS ORDERED: Sodium Chloride 0.9% 1000 ML 1,000 ML IV STA (22:52)
[2019-06-05] MEDS ORDERED: Sodium Chloride 0.9% 1000 ML 1,000 ML ONE (23:00)
[2019-06-05] MEDS ORDERED: Zofran 4 MG/2 ML VIAL ONE (23:00)
[2019-06-05 23:02] LABS: Absolute Neutrophil Ct (ANC) 8.41 (1.4-6.9); BASOPHIL % 0.1 % (0.0-0.4); Basophil (Absolute #) 0.01 (0-0.4); Eosinophil % 0.2 % (0.00-5.0); Eosinophil (Absolute #) 0.02 (0-0.5); Hematocrit 40.4 % (35-47); Hemoglobin 13.8 gm/dl (12.0-16.0); Lymphocyte (Absolute #) 1.08 (1.0-4.6); Lymphocytes % 10.8 % (24.0-44.0); Mean Cell Volume 90.4 fl (78-100); Mean Corpuscular Hemoglobin 30.9 pg (26-32); Mean Corpuscular Hgb Concent. 34.2 g/dl (32-36); Monocyte (Absolute #) 0.49 (0.0-1.3); Monocytes % 4.9 % (0.0-12.0); Platelet Count 179 K/mm3 (150-450); Red Blood Count 4.47 M/mm3 (4.1-5.4)
[2019-06-05 23:06] LABS: ALBUMIN 4.5 g/dL (3.5-5.0); ALKALINE PHOSPHATASE 74 U/L (38-126); AMYLASE 95 U/L (30-110); ANION GAP 14.5 MEQ/L (5-15); BLOOD UREA NITROGEN 13 mg/dL (7-17); CHLORIDE 109 mmol/L (98-107); Calcium 9.9 mg/dL (8.4-10.2); Carbon Dioxide 21 mmol/L (22-30); Creatinine 1 0.55 mg/dL (0.52-1.04); Glucose 133 mg/dL (74-106); LIPASE 111 U/L (23-300); Potassium 3.7 mmol/L (3.5-5.1); SGOT/AST 30 U/L (14-36); SGPT/ALT 27 U/L (0-35); SODIUM 141 mmol/L (137-145); Total Protein 8.1 g/dL (6.3-8.2)
[2019-06-05 23:38] LABS: INFLUENZA A NEGATIVE (NEGATIVE); INFLUENZA B NEGATIVE (NEGATIVE); RESPIRATORY SYNCTIAL VIRUS NEGATIVE (Negative)
[2019-06-06] MEDS ORDERED: Sodium Chloride 0.9% 1000 ML 1,000 ML IV STA (00:37)
[2019-06-06] MEDS ORDERED: Sodium Chloride 0.9% 1000 ML 1,000 ML ONE (00:38)
[2019-06-06 00:56] LABS: Amourphous Crystal MODERATE /HPF (NEGATIVE); Appearance CLOUDY (CLEAR); Bacteria MODERATE /HPF (NEGATIVE); Bilirubin NEGATIVE (NEGATIVE); Blood LARGE Ery/ul (0-5); Epithelial Cells RARE /HPF (FEW); Glucose NEGATIVE (NEGATIVE); Ketones MODERATE (NEGATIVE); Leukocyte Esterase NEGATIVE (NEGATIVE); Mucus SLIGHT /HPF (NEGATIVE); Nitrite NEGATIVE (NEGATIVE); Protein,Urine Dip NEGATIVE (Negative); Specific Gravity 1.024 (1.005-1.025); Urobilinogen NEGATIVE mg/dL (0-1)
[2019-06-06 00:57] LABS: Budding Yeast Few /HPF (NEGATIVE)
[2019-06-06] MEDS ORDERED: Sodium Chloride 0.9% 500 ML 500 ML IV ONE ×2 (01:21→01:44)
[2019-06-06 01:34] VITALS: O2SAT 99
[2019-06-06 02:21] VITALS: BP 110/63; PULSE 71
== END 2019-06-06 02:26 | disposition home or self-care (01) ==
LOC: ED 22:15
DX: R11.10 Vomiting, unspecified (principal); R19.7 Diarrhea, unspecified; E86.0 Dehydration
CPT/HCPCS: 36000; 36415; 80053; 81001; 82150; 83605; 83690; 84703; 85025; 86308; 87086; 87631; 96360; 96361; 96374; 99284; J2405

== ENCOUNTER 2020-01-06 08:31 | Day surgery (SDC) | payer BC ==
--- NOTE | 2019-12-30 11:24 | HP ---
DATE OF SURGERY: 01/06/2020 HISTORY OF PRESENT ILLNESS: The patient presents with complaints of chronic tonsil stones. She has recently had left-sided tonsil stones. Her right tonsil has recently been enlarged and she reports there was severe pain that was giving her an earache. She was treated with antibiotics for this. Her mom reports she does get Strep throat once a year. The patient reports that tonsil stones on the left side are painful and do cause her some issues with swallowing due to enlarged tonsil and chronic tonsil stones. She is reporting that she is having trouble swallowing pills from dysphagia due to the excessive tonsils being large and swollen. PAST MEDICAL HISTORY: Anxiety. PAST SURGICAL HISTORY: [place] teeth removed. ALLERGIES: NKDA. MEDICATIONS: Lexapro. Hydroxyzine. Oral control. FAMILY HISTORY: None. SOCIAL HISTORY: Reports vaping and occasional alcohol use. REVIEW OF SYSTEMS: HEENT: Reports dysphagia. Chronically enlarged tonsils with tonsil stones. CONSTITUTIONAL: Denies fever or chills. CHEST: Denies shortness of breath. CVS: Denies chest pain. ABDOMEN: Denies pain, nausea, vomiting, diarrhea, constipation or rectal bleeding. : Denies dysuria or hematuria. PHYSICAL EXAMINATION: GENERAL: No acute distress. HEENT: Moderately enlarged tonsils. No tonsil stone seen on exam today. CHEST: Nonlabored. No shortness of breath. CVS: Regular rate and rhythm. ABDOMEN: Soft, nontender to palpation. EXTREMITIES: No edema. NEUROLOGIC: Alert. PSYCHIATRIC: Appropriate. ASSESSMENT: Chronic tonsil stones, tonsillitis and dysphagia. PLAN: Tonsillectomy with Dr. Goran Duran. As dictated by Ana Manning NP.
[~2020-01-06 08:31] MED LIST: Lactated Ringers 1,000 ML IV SCH
[2020-01-06] MEDS ORDERED: Lactated Ringers 1,000 ML IV ONE (09:21)
[2020-01-06] MEDS ORDERED: Zemuron 100 MG/10 ML ONE (09:31)
[2020-01-06] MEDS ORDERED: Zofran 4 MG/2 ML VIAL ONE (09:31)
[2020-01-06] MEDS ORDERED: DIPRIVAN 200 MG/20 ML IV ONE (09:31)
[2020-01-06] MEDS ORDERED: SUBLIMAZE 250 MCG/5 ML ONE (09:31)
[2020-01-06] MEDS ORDERED: Decadron 4 MG INJ ONE (09:31)
[2020-01-06] MEDS ORDERED: Versed 2 MG/2 ML Injection IV ONE (09:36)
[2020-01-06] MEDS ORDERED: Xylocaine-Mpf 2% 5 Ml Vial ONE (11:46)
[2020-01-06] MEDS ORDERED: BRIDION 200MG/2ML IV ONE (12:09)
[2020-01-06 13:38] VITALS: BP 123/75; PULSE 70; O2SAT 100
--- NOTE | 2020-01-06 14:15 | OP ---
SURGERY DATE/TIME: 01/06/2020 1146 PREOPERATIVE DIAGNOSIS: Recurrent chronic tonsillitis. POSTOPERATIVE DIAGNOSIS: Recurrent chronic tonsillitis. PROCEDURE: Bilateral tonsillectomy. SURGEON: Goran Duran M.D. BALL WARPER TENDER: Mazin Luu, [facility]. ANESTHESIA: General. COMPLICATIONS: None. ESTIMATED BLOOD LOSS: None. DRAINS: None. CONDITION: Stable. INDICATION: A patient with chronic tonsillitis. She also has sulfur granules in addition. She has very chronic cryptic tonsillitis on examination. DESCRIPTION OF PROCEDURE: She was taken to surgery. General anesthetic. Routine prep and drape. An adult mouth gag was carefully placed. It was protected around with towels for the cautery. The left tonsil addressed first. The anterior pillar scored. It was chronically inflamed but there had been no abscess. It came out readily. It was totally dry. Anterior and posterior pillars, base of tongue all satisfactory. The right side much more inflammation probably an old abscess in the right lower corner, markedly more scarred. It was delivered off the posterior pillar, the base of tongue satisfactorily and no residual tonsillar tissue. There were no adenoids in this 19 year old. The field was totally dry. It was irrigated. It was dry. The traction was off the mouth gag and it was still dry. The patient tolerated the procedure satisfactorily.
== END 2020-01-06 13:45 | disposition home or self-care (01) ==
LOC: SDC 08:31
PROVIDERS: ATTEND Surgery
DX: J03.91 Acute recurrent tonsillitis, unspecified (principal); J35.01 Chronic tonsillitis
CPT/HCPCS: 84703; 88304; J1100; J2250; J2405; J2704; J3010

== ENCOUNTER 2023-02-19 03:51 | Emergency (ER) | payer BC ==
[2023-02-19] MEDS ORDERED: XYLOCAINE 1% HCL 20 ML MDV IJ ONE (03:52)
[2023-02-19 04:26] LABS: HCG URINE TEST NEGATIVE (NEGATIVE)
[2023-02-19 04:30] LABS: Appearance Cloudy (Clear); Bacteria Many /HPF (None Seen); Bilirubin Negative (Negative); Blood Negative (Negative); Epithelial Cells Rare /HPF (None Seen); Glucose, Urine Negative (Negative); Hyaline Casts NONE SEEN /LPF (0-2); Ketones 40 (Negative); Leukocyte Esterase Small (Negative); Nitrite Positive (Negative); Protein,Urine Dip Trace (Negative); RBC 0-2 /HPF (0-5); Specific Gravity 1.015 (1.005-1.030); WBC 21-50 /HPF (0-5)
[2023-02-19 04:31] VITALS: TEMP 98.1
[2023-02-19 04:51] LABS: ADD URINE CULTURE? YES (NO)
[2023-02-19] MEDS ORDERED: Rocephin 1000 MG INJ IM ONE (05:13)
--- NOTE | 2023-02-19 05:16 | ERPHSYRPT ---
- History of Present Illness Time Seen by Provider: 02/19/23 05:03 Source: patient Exam Limitations: no limitations Patient Subjective Stated Complaint: pt states that around 1800 on Friday02/15/23 she started having a sharp pain in her right lower and mid back, approx 24hrs after that she started sweating a lot and having chills but didn't check her temperature. earlier this evening the pain started radiating around to her right lower abd/pelvic/ groin area. she states that earlier today she had 2 episodes of brown liquid diarrhea and slight nausea with 2 episodes vomiting clear liquid with pieces of crackers. states that there is a slight burn when she urinates that has been present for a couple of days. she also states just recently she has had a small amount of white mucus discharge vaginally and denies any perineal itching or pain. Triage Nursing Assessment: pt ambulated to room 9 independently with slow steady gait after standing on scales for weight acquisition and going to restroom to obtain urine sample. pt is alert and oriented times three, able to speak in complete sentences, able to move all extremities, and with resp even and unlabored. no edema noted, denies numbness or tingling, color and cap refill within normal limits to all extremities. skin warm, pink, dry, and intact. bilat radial and pedal pulses present and equal. abd soft, nontender to palpation, nondistended, and with positive bowel sounds in all quadrants. denies cp, sob, difficulty breathing, lightheadedness, or dizziness. Physician History: Patient is a 22-year-old female presents to our ED for evaluation of right-sided flank pain. Pain started 3 to 4 days ago. Pain has been progressive. Pain now radiating from her right flank down to her groin area. No trauma. No fever. Symptoms are mild to moderate in intensity. No specific worsening improving factors. Patient is otherwise healthy. She voices no other complaints or concerns at this time. Portions of this note were created with voice recognition technology. There may be grammatical, spelling, punctuation or sound alike errors Timing/Duration: day(s) (4 days ago) Severity: moderate Modifying Factors: Improves With: nothing Associated Symptoms: denies symptoms Allergies/Adverse Reactions: No Known Drug Allergies Allergy (Verified 02/19/23 04:00) Home Medications: No Reportable Medications [No Reported Medications] 02/19/23 [History] Hx Tetanus, Diphtheria Vaccination/Date Given: Yes Hx Influenza Vaccination/Date Given: Yes Hx Pneumococcal Vaccination/Date Given: No Immunizations Up to Date: No Travel Risk - International Travel Have you traveled outside of the country in past 3 weeks: No - Coronavirus Screening Are you exhibiting any of the following symptoms?: No Close contact with a COVID-19 positive Pt in past 14-21 Days: No - Vaccine Status Have you recieved a Covid-19 vaccination: No - Review of Systems Constitutional: No Symptoms, No Fever, No Chills Eyes: No Symptoms Ears, Nose, & Throat: No Symptoms Respiratory: No Symptoms, No Cough, No Dyspnea Cardiac: No Symptoms, No Chest Pain, No Edema, No Syncope Abdominal/Gastrointestinal: No Symptoms, No Abdominal Pain, No Nausea, No Vomiting, No Diarrhea Genitourinary Symptoms: No Symptoms, No Dysuria Musculoskeletal: No Symptoms, No Back Pain, No Neck Pain Skin: No Symptoms, No Rash Neurological: No Symptoms, No Dizziness, No Focal Weakness, No Sensory Changes Psychological: No Symptoms Endocrine: No Symptoms Hematologic/Lymphatic: No Symptoms Immunological/Allergic: No Symptoms All Other Systems: Reviewed and Negative - Past Medical History Pertinent Past Medical History: Yes Neurological History: No Pertinent History ENT History: No Pertinent History Cardiac History: No Pertinent History Respiratory History: No Pertinent History Endocrine Medical History: No Pertinent History Musculoskeletal History: No Pertinent History GI Medical History: No Pertinent History History: No Pertinent History Psycho-Social History: Anxiety, Depression Female Reproductive Disorders: No Pertinent History Other Medical History: hx of constipation and abd pain - Past Surgical History Past Surgical History: Yes Neuro Surgical History: No Pertinent History Cardiac: No Pertinent History Respiratory: No Pertinent History Gastrointestinal: No Pertinent History Genitourinary: No Pertinent History Musculoskeletal: No Pertinent History Female Surgical History: No Pertinent History Other Surgical History: wisdom teeth - Social History Smoking Status: Current every day smoker How long have you smoked: 1.5yr Exposure to second hand smoke: Yes Drug Use: marijuana Patient Lives Alone: No - Female History Hx Last Menstrual Period: 01/26/23 Hx Now: No - Nursing Vital Signs Nursing Vital Signs: Initial Vital Signs Temperature 98.1 F 02/19/23 04:06 Pulse Rate 121 H 02/19/23 04:06 Respiratory Rate 16 02/19/23 04:06 Blood Pressure 141/84 02/19/23 04:06 O2 Sat by Pulse Oximetry 97 02/19/23 04:06 Pain Scale Pain Intensity 6 - Physical Exam General Appearance: no apparent distress, alert Eye Exam: PERRL/EOMI, eyes nml inspection Ears, Nose, Throat Exam: normal ENT inspection, TMs normal, pharynx normal, moist mucous membranes Neck Exam: normal inspection, non-tender, supple, full range of motion Respiratory Exam: normal breath sounds, lungs clear, No respiratory distress Cardiovascular Exam: regular rate/rhythm, normal heart sounds, normal peripheral pulses Gastrointestinal/Abdomen Exam: soft, normal bowel sounds, No tenderness, No mass Back Exam: normal inspection, normal range of motion, No CVA tenderness, No vertebral tenderness Extremity Exam: normal inspection, normal range of motion, pelvis stable Neurologic Exam: alert, oriented x 3, cooperative, normal mood/affect, nml c erebellar function, nml station & gait, sensation nml, No motor deficits Skin Exam: normal color, warm, dry, No rash Lymphatic Exam: No adenopathy SpO2 Interpretation: normal SpO2: 98 O2 Delivery: Room Air - Course Nursing assessment & vital signs reviewed: Yes Ordered Tests: Active Orders 24 hr Category Date Time Status IV Insertion STAT Care 02/19/23 05:25 Active ABDOMEN AND PELVIS W/0 CONTRAS [CT] Stat Exams 02/19/23 05:12 Taken CBC W DIFF Stat Lab 02/19/23 05:49 Completed CMP Stat Lab 02/19/23 05:49 Completed CULTURE,URINE Stat Lab 02/19/23 04:10 Received HCG QUALITATIVE, URINE Stat Lab 02/19/23 04:10 Completed UA W/RFX UR CULTURE Stat Lab 02/19/23 04:10 Completed Medication Summary Discontinued Medications Generic Name Dose Route Start Last Admin Trade Name Freq PRN Reason Stop Dose Admin Ceftriaxone Sodium 1,000 mg 02/19/23 05:13 02/19/23 05:24 Ceftriaxone Sodium 1000 Mg Inj Vial IM 02/19/23 05:14 1,000 mg STAT ONE Administration Ceftriaxone Sodium Confirm 02/19/23 05:17 Ceftriaxone Sodium 1000 Mg Inj Vial Administered 02/19/23 05:18 Dose 1,000 mg .ROUTE .STK-MED ONE Sodium Chloride 1,000 mls @ 999 mls/hr 02/19/23 05:25 02/19/23 06:40 Sodium Chloride 0.9% 1000 Ml IV 02/19/23 06:25 Infused .Q1H1M STA Infusion Sodium Chloride Confirm 02/19/23 05:28 Sodium Chloride 0.9% 1000 Ml Administered 02/19/23 05:29 Dose 1,000 mls @ ud .ROUTE .STK-MED ONE Ketorolac Tromethamine 30 mg 02/19/23 05:30 02/19/23 05:31 Ketorolac Tromethamine 30 Mg/Ml Inj IV 02/19/23 05:31 30 mg STAT ONE Administration Ketorolac Tromethamine Confirm 02/19/23 05:30 Ketorolac Tromethamine 30 Mg/Ml Inj Administered 02/19/23 05:31 Dose 30 mg .ROUTE .STK-MED ONE Ondansetron HCl 4 mg 02/19/23 05:25 02/19/23 05:31 Ondansetron Hcl 4 Mg/2 Ml Vial IV 02/19/23 05:26 4 mg STAT ONE Administration Ondansetron HCl Confirm 02/19/23 05:28 Ondansetron Hcl 4 Mg/2 Ml Vial Administered 02/19/23 05:29 Dose 4 mg .ROUTE .STK-MED ONE Lab/Rad Data: Laboratory Result Diagrams 02/19/23 05:49 02/19/23 05:49 Laboratory Results 02/19/23 02/19/23 02/19/23 Range/Units 05:49 05:49 04:10 WBC 12.6 H (4.0-10.5) x10^3/uL RBC 4.17 (4.1-5.4) x10^6/uL Hgb 13.7 (12.0-16.0) g/dL Hct 39.7 (35-47) % MCV 95.2 (78-100) fL MCH 32.9 H (26-32) pg MCHC 34.5 (32-36) g/dL RDW 11.7 (11.5-14.0) % Plt Count 182 (150-450) x10^3/uL MPV 9.3 (7.5-11.0) fL Gran % 83.6 H (36.0-66.0) % Immature Gran % (Auto) 0.4 (0.00-0.4) % Nucleat RBC Rel Count 0.0 (0.00-0.1) % Eos # (Auto) 0.01 (0-0.5) x10^3/uL Immature Gran # (Auto) 0.05 H (0.00-0.03) x10^3u/L Absolute Lymphs (auto) 1.00 (1.0-4.6) x10^3/uL Absolute Monos (auto) 0.98 (0.0-1.3) x10^3/uL Absolute Nucleated RBC 0.00 (0.00-0.01) x10^3u/L Lymphocytes % 7.9 L (24.0-44.0) % Monocytes % 7.8 (0.0-12.0) % Eosinophils % 0.1 (0.00-5.0) % Basophils % 0.2 (0.0-0.4) % Absolute Granulocytes 10.57 H (1.4-6.9) x10^3/uL Basophils # 0.02 (0-0.4) x10^3/uL Sodium 129 L (137-145) mmol/L Potassium 3.4 L (3.5-5.1) mmol/L Chloride 96 L (98-107) mmol/L Carbon Dioxide 20 L (22-30) mmol/L Anion Gap 16.1 H (5-15) MEQ/L BUN 6 L (7-17) mg/dL Creatinine 0.61 (0.52-1.04) mg/dL Estimated GFR > 60.0 ML/MIN Glucose 100 (74-106) mg/dL Calcium 8.9 (8.4-10.2) mg/dL Total Bilirubin 0.60 (0.2-1.3) mg/dL AST 23 (14-36) U/L ALT 17 (0-35) U/L Alkaline Phosphatase 74 (38-126) U/L Serum Total Protein 7.6 (6.3-8.2) g/dL Albumin 4.1 (3.5-5.0) g/dL Urine Color (Yellow) Urine Appearance (Clear) Urine pH (4.6-8.0) Ur Specific [place] (1.005-1.030) Urine Protein (Negative) Urine Glucose (UA) (Negative) mg/dL Urine Ketones (Negative) Urine Blood (Negative) Urine Nitrite (Negative) Urine Bilirubin (Negative) Urine Urobilinogen (0.2) mg/dL Ur Leukocyte Esterase (Negative) U Hyaline Cast (Auto) (0-2) /LPF Urine Microscopic RBC (0-5) /HPF Urine Microscopic WBC (0-5) /HPF Ur Epithelial Cells (None Seen) /HPF Urine Bacteria (None Seen) /HPF Urine Culture Reflexed (NO) Urine HCG, Qual NEGATIVE (NEGATIVE) 02/19/23 Range/Units 04:10 WBC (4.0-10.5) x10^3/uL RBC (4.1-5.4) x10^6/uL Hgb (12.0-16.0) g/dL Hct (35-47) % MCV (78-100) fL MCH (26-32) pg MCHC (32-36) g/dL RDW (11.5-14.0) % Plt Count (150-450) x10^3/uL MPV (7.5-11.0) fL Gran % (36.0-66.0) % Immature Gran % (Auto) (0.00-0.4) % Nucleat RBC Rel Count (0.00-0.1) % Eos # (Auto) (0-0.5) x10^3/uL Immature Gran # (Auto) (0.00-0.03) x10^3u/L Absolute Lymphs (auto) (1.0-4.6) x10^3/uL Absolute Monos (auto) (0.0-1.3) x10^3/uL Absolute Nucleated RBC (0.00-0.01) x10^3u/L Lymphocytes % (24.0-44.0) % Monocytes % (0.0-12.0) % Eosinophils % (0.00-5.0) % Basophils % (0.0-0.4) % Absolute Granulocytes (1.4-6.9) x10^3/uL Basophils # (0-0.4) x10^3/uL Sodium (137-145) mmol/L Potassium (3.5-5.1) mmol/L Chloride (98-107) mmol/L Carbon Dioxide (22-30) mmol/L Anion Gap (5-15) MEQ/L BUN (7-17) mg/dL Creatinine (0.52-1.04) mg/dL Estimated GFR ML/MIN Glucose (74-106) mg/dL Calcium (8.4-10.2) mg/dL Total Bilirubin (0.2-1.3) mg/dL AST (14-36) U/L ALT (0-35) U/L Alkaline Phosphatase (38-126) U/L Serum Total Protein (6.3-8.2) g/dL Albumin (3.5-5.0) g/dL Urine Color Yellow (Yellow) Urine Appearance Cloudy A (Clear) Urine pH 6.0 (4.6-8.0) Ur Specific [place] 1.015 (1.005-1.030) Urine Protein Trace A (Negative) Urine Glucose (UA) Negative (Negative) mg/dL Urine Ketones 40 A (Negative) Urine Blood Negative (Negative) Urine Nitrite Positive A (Negative) Urine Bilirubin Negative (Negative) Urine Urobilinogen 1.0 A (0.2) mg/dL Ur Leukocyte Esterase Small A (Negative) U Hyaline Cast (Auto) NONE SEEN (0-2) /LPF Urine Microscopic RBC 0-2 (0-5) /HPF Urine Microscopic WBC 21-50 A (0-5) /HPF Ur Epithelial Cells Rare (None Seen) /HPF Urine Bacteria Many A (None Seen) /HPF Urine Culture Reflexed YES (NO) Urine HCG, Qual (NEGATIVE) - Progress Progress: improved Progress Note: Patient 22-year-old female presents to our ED for evaluation of flank pain dysuria. Physical exam reveals right-sided CVA tenderness. Mild tachycardia. Patient was warm to touch however no objective fever. Urinalysis reveals a urinary tract infection. CT abdomen pelvis pending. CBC reveals a leukocytosis of 12.6. CMP reveals a hyponatremia. Patient receiving normal saline to address the hyponatremia. Rocephin administered to address the leukocytosis and urinary tract infection. Patient received Toradol for pain and Zofran for nausea. CT scan results pending. Is currently change shift. Patient endorsed to Dr. Negron will follow-up on results and make final disposition. Complexity of problem addressed is moderate acute complicated. No critical care time Complexity of data reviewed and analyzed is moderate. Test ordered. Test re viewed and analyzed. Clinical correlation made between findings and history and physical examination. Risk of complication and or risk morbidity/mortality of patient management is moderate. Patient will be discharged home with oral antibiotics and likely Diflucan. Vital stable. Time spent to discharge patient approximately 15 minutes. Plan of care established for shared decision making. No social determinants of health present to impede follow-up. Portions of this note were created with voice recognition technology. There may be grammatical, spelling, punctuation or sound alike errors 02/19/23 06:51 Counseled pt/family regarding: lab results, diagnosis, rad results - Departure Departure Disposition: Home Clinical Impression: UTI (urinary tract infection), Pyuria, Flank pain, Hyponatremia, Leukocytosis, Tachycardia Condition: Stable Critical Care Time: No Referrals: DANYELLE AGUIRRE NP [Primary Care Provider] - Follow up/PCP as directed
[2023-02-19] MEDS ORDERED: Rocephin 1000 MG INJ ONE (05:17)
[2023-02-19] MEDS ORDERED: Sodium Chloride 0.9% 1000 ML 1,000 ML IV STA (05:25)
[2023-02-19] MEDS ORDERED: Zofran 4 MG/2 ML VIAL IV ONE (05:25)
[2023-02-19] MEDS ORDERED: Zofran 4 MG/2 ML VIAL ONE (05:28)
[2023-02-19] MEDS ORDERED: Sodium Chloride 0.9% 1000 ML 1,000 ML ONE (05:28)
[2023-02-19] MEDS ORDERED: TORAdol 30 mg Injection ONE (05:30)
[2023-02-19] MEDS ORDERED: TORAdol 30 mg Injection IV ONE (05:30)
[2023-02-19 05:52] LABS: Absolute Neutrophil Ct (ANC) 10.57 x10^3/uL (1.4-6.9); BASOPHIL % 0.2 % (0.0-0.4); Basophil (Absolute #) 0.02 x10^3/uL (0-0.4); Eosinophil % 0.1 % (0.00-5.0); Eosinophil (Absolute #) 0.01 x10^3/uL (0-0.5); Hematocrit 39.7 % (35-47); Hemoglobin 13.7 g/dL (12.0-16.0); IMMATURE GRAN # 0.05 x10^3u/L (0.00-0.03); IMMATURE GRAN % 0.4 % (0.00-0.4); Lymphocytes % 7.9 % (24.0-44.0); Mean Cell Volume 95.2 fL (78-100); Mean Corpuscular Hemoglobin 32.9 pg (26-32); Mean Corpuscular Hgb Concent. 34.5 g/dL (32-36); Mean Platelet Volume 9.3 fL (7.5-11.0); Monocyte (Absolute #) 0.98 x10^3/uL (0.0-1.3); Monocytes % 7.8 % (0.0-12.0); Neutrophil % 83.6 % (36.0-66.0); Platelet Count 182 x10^3/uL (150-450); Red Blood Count 4.17 x10^6/uL (4.1-5.4); Red Cell Distribution Width 11.7 % (11.5-14.0); White Blood Count 12.6 x10^3/uL (4.0-10.5)
[2023-02-19 06:03] LABS: ALBUMIN 4.1 g/dL (3.5-5.0); ALKALINE PHOSPHATASE 74 U/L (38-126); ANION GAP 16.1 MEQ/L (5-15); BLOOD UREA NITROGEN 6 mg/dL (7-17); CHLORIDE 96 mmol/L (98-107); Calcium 8.9 mg/dL (8.4-10.2); Carbon Dioxide 20 mmol/L (22-30); Creatinine 1 0.61 mg/dL (0.52-1.04); EST GLOMERULAR FILTRATION RATE > 60.0 ML/MIN; Glucose 100 mg/dL (74-106); Potassium 3.4 mmol/L (3.5-5.1); SGOT/AST 23 U/L (14-36); SGPT/ALT 17 U/L (0-35); SODIUM 129 mmol/L (137-145); Total Protein 7.6 g/dL (6.3-8.2)
[2023-02-19] MEDS ORDERED: Diflucan 100 MG PO ONE (07:10)
[2023-02-19] MEDS ORDERED: DIFLUCAN PO ONE (07:28)
[2023-02-19 07:45] VITALS: PULSE 89; O2SAT 98
--- NOTE | 2023-02-19 07:47 | XRAY ---
CLINICAL HISTORY:pain COMPARISON:01/09/2019 TECHNIQUE:CT scan of the abdomen was performed without IV contrast. FINDINGS: Both kidneys are normal in size, shape, and orientation. No calculi, cyst mass, or hydronephrosis. Both ureters and urinary bladder appear normal. Appendix is not separately visualized however no collection or fat stranding noted in right iliac fossa. Liver is normal in size and shape and with regular margins. No focal or diffuse parenchymal abnormality. No hepatic mass is identified. The portal vein, intrahepatic biliary radicals, and the bile ducts are normal. Gall bladder appears normal with wall thickness. No radio-opaque calculus or pericholecystic fluid was identified. Common bile appears normal. Pancreas appears normal. No peripancreatic fat stranding, pancreatic pseudocyst, or peripancreatic fluid collection. Spleen normal in size, no mass seen. Both adrenal glands are unremarkable. Stomach and small bowel loops are unremarkable. Caecum and ileocecal junction appear normal. Large bowel loops appear normal without evidence of bowel obstruction. The sigmoid and rectum appear normal. No evidence of significant enlargement of the mesenteric or retroperitoneal lymph nodes. Visualized pelvic organs appear unremarkable. Visualized thoracic and lumbar spine appears normal. No lytic or sclerotic bone lesions in visualized bones. Note is made of left gluteal region subcutaneous tissue inflammatory/infective focus measures 2.9x2.0 cm with internal specks of air lucencies (new finding). IMPRESSION: Left gluteal region subcutaneous soft tissue tissue inflammatory/infective focus measures 2.9x2.0 cm with internal specks of air lucencies (new finding). No other significant abnormality identified. Electronically Signed by: Puja Rivera MD. (02/19/2023 06:45:15 [employer])
[2023-02-19 08:13] LABS: ANION GAP 15.6 MEQ/L (5-15); BLOOD UREA NITROGEN 7 mg/dL (7-17); CHLORIDE 102 mmol/L (98-107); Calcium 8.1 mg/dL (8.4-10.2); Carbon Dioxide 19 mmol/L (22-30); EST GLOMERULAR FILTRATION RATE > 60.0 ML/MIN; Glucose 93 mg/dL (74-106); Potassium 3.4 mmol/L (3.5-5.1); SODIUM 133 mmol/L (137-145)
[2023-02-19 08:28] VITALS: BP 100/70; RESP 16
== END 2023-02-19 08:30 | disposition home or self-care (01) ==
LOC: ED 03:51
DX: N39.0 Urinary tract infection, site not specified (principal); R10.9 Unspecified abdominal pain; E87.1 Hypo-osmolality and hyponatremia; D72.829 Elevated white blood cell count, unspecified; R00.0 Tachycardia, unspecified; R10.31 Right lower quadrant pain; Z28.310 Unvaccinated for COVID-19; Z72.0 Tobacco use
CPT/HCPCS: 36000; 36415; 74176; 80048; 80053; 81001; 81025; 85025; 87077; 87086; 87186; 96360; 96372; 96374; 96375; 99284; J0696; J1885; J2405; A9270-GY